=== PATIENT | female | born 1985 | race African-American/Black ===

== ENCOUNTER 2020-07-29 07:07 | Emergency (ER) | payer OTHER ==
[2020-07-29 07:20] VITALS: BP 155/107; PULSE 82; TEMP 99; BMI 44.8
[2020-07-29] MEDS ORDERED: DIPHTH,PERTUSS(ACELL),TET 0.5 ML DISP.SYRIN IM ONE ×2 (07:44→08:02)
[2020-07-29] MEDS ORDERED: LIDOCAINE HCL 1%, 10 MG/ML (20ML VIAL) ONE (08:31)
[2020-07-29] MEDS ORDERED: CEPHALEXIN MONOHYDRATE 500 MG CAPSULE (UD) PO ONE (09:12)
[2020-07-29] MEDS ORDERED: CEPHALEXIN MONOHYDRATE 500 MG CAPSULE (UD) ONE (09:13)
== END 2020-07-29 09:44 | disposition home or self-care (01) ==
LOC: FER 07:07
PROC: 0JQK0ZZ Repair Left Hand Subcutaneous Tissue and Fascia, Open Approach (ICD-10-PCS; principal; 2020-07-29)
PROC: 3E0234Z Introduction of Serum, Toxoid and Vaccine into Muscle, Percutaneous Approach (ICD-10-PCS; 2020-07-29)
DX: S61.211A Laceration without foreign body of left index finger without damage to nail, initial encounter (principal)
CPT/HCPCS: 90715; 99284-25

== ENCOUNTER 2020-08-05 06:52 | Emergency (ER) | payer OTHER ==
[2020-08-05 07:06] VITALS: BP 153/101; PULSE 78; TEMP 98.5; BMI 31.3
== END 2020-08-05 07:31 | disposition home or self-care (01) ==
LOC: FER 06:52
DX: S61.211A Laceration without foreign body of left index finger without damage to nail, initial encounter (principal); Z48.02 Encounter for removal of sutures
CPT/HCPCS: 99281-25